=== PATIENT | male | born 1960 | race Caucasian/White ===

== ENCOUNTER → 2023-12-24 | Outpatient (CLI) | payer OTHER | LOC: COL.RAD 08:38 | DX: M51.17 Intervertebral disc disorders with radiculopathy, lumbosacral region (principal); M48.07 Spinal stenosis, lumbosacral region ==

== ENCOUNTER → 2024-09-26 | Outpatient (CLI) | payer OTHER ==
[~2024-09-26] VITALS: Ht 185.4 cm; Wt 102.1 kg
[~2024-09-26] MED LIST: ATIVAN 1MG T1 MG/TAB PO; CIALIS20 MG PO; GLUCOPHAGE1000 MG PO; PRAVACHOL80 MG PO; Triamcinolone 40 MG/ML 1 ML VIAL IJ SCH; ZESTORETIC 12.51 TA1 PO; ZYLOPRIM 300MG300 MG PO
[2024-09-26 08:17] VITALS: BP 166/102; PULSE 102; TEMP 97.4
--- NOTE | 2024-09-26 08:28 | NUR ---
CALLED THE [facility] TO LET THEM KNOW ABOUT PATIENT'S BLOOD PRESSURE. DR. GUNTER IS AWARE. NO INTERVENTIONS AT THIS TIME.
[2024-09-26 09:25] VITALS: BP 167/105; PULSE 102
--- NOTE | 2024-09-26 09:45 | NUR ---
PATIENT HAS COMPLETED HIS RECOVERY. PATIENT DENIES ANY NUMBNESS OR TINGLING AND IS ABLE TO WALK UNASSISATED AND WITHOUT ISSUES. BANDAGE REMAINS CLEAN, DRY, AND INTACT. PATIENT ESCORTED VIA WHEELCHAIR WITH ALL OF HIS BELONGINGS TO THE PATIENT ENTRANCE. PATIENT GOT IN THE FRONT PASSENGER SEAT. ALL NEEDS MET.
== END ==
LOC: COL.RAD 07:59
DX: M51.16 Intervertebral disc disorders with radiculopathy, lumbar region (principal)
CPT/HCPCS: J0665; J3301